=== PATIENT | male | born 1965 | race African-American/Black ===

== ENCOUNTER 2017-11-14 08:56 | Emergency (ER) | payer OTHER ==
[2017-11-14 09:02] VITALS: BP 156/97; PULSE 117; TEMP 101.5; BMI 41.5
[2017-11-14] MEDS ORDERED: ACETAMINOPHEN 325 MG TABLET (FP) PO ONE (09:04)
--- NOTE | 2017-11-14 09:09 | PDOC ---
History of Present Illness - History of Present Illness Initial Comments: 11/14/17 09:11 Mr. Schaeffer is a 52 yo male w/ pmh of HTN and previously admitted for leukopenia ( 12/19/2012) who presents complaining of a 4 day history of body aches, fevers, and chills. He had initially thought he had a cold but decided to come and get evaluated due to his prior leukopenia. He has been evaluated by hematology in the past and cause of prior leukopenia remains unknown. The patient denies chest pain, shortness of breath, headache and dizziness. Denies nausea, vomit, diarrhea and constipation. Denies dysuria, frequency, urgency and hematuria. Allergies: NKDA <Jimbo Lobato - Last Filed: 11/14/17 12:30> <Johny Patricia - Last Filed: 11/14/17 18:24> - General Chief Complaint: Respiratory Stated Complaint: FEVER Time Seen by Provider: 11/14/17 09:09 Past History - Past Medical History Anemia: No Asthma: No Cancer: No Cardiac Disorders: No CVA: No COPD: No CHF: No DVT: No Dementia: No Diabetes: No GI Disorders: No Disorders: No HTN: Yes Hypercholesterolemia: No Liver Disease: No Seizures: No Thyroid Disease: No - Surgical History Abdominal Surgery: No Appendectomy: No Cardiac Surgery: No Cholecystectomy: No Lung Surgery: No Neurologic Surgery: No Orthopedic Surgery: No - Suicide/Smoking/Psychosocial Hx Smoking Status: No Smoking History: Never smoked Number of Cigarettes Smoked Daily: 0 Information on smoking cessation initiated: No Hx Alcohol Use: No Drug/Substance Use Hx: No Substance Use Type: None <Jimbo Lobato - Last Filed: 11/14/17 12:30> <Johny Patricia - Last Filed: 11/14/17 18:24> - Past Medical History Allergies/Adverse Reactions: Allergies Allergy/AdvReac Type Severity Reaction Status Date / Time No Known Allergies Allergy Verified 11/14/17 08:57 Home Medications: Ambulatory Orders Benzonatate [Tessalon Perle] 100 mg PO TID PRN #30 capsule 07/13/13 Valsartan/Hydrochlorothiazide [Diovan Hct 160-25 mg Tablet] 1 combo PO DAILY Review of Systems - Review of Systems Comments:: 11/14/17 09:22 GENERAL/CONSTITUTIONAL: +Fever/chills and body aches as described. No weakness. HEAD, EYES, EARS, NOSE AND THROAT: No change in vision. No ear pain or discharge. No sore throat. CARDIOVASCULAR: No chest pain or shortness of breath RESPIRATORY: No cough, wheezing, or hemoptysis. GASTROINTESTINAL: No nausea, vomiting, diarrhea or constipation. GENITOURINARY: No dysuria, frequency, or change in urination. MUSCULOSKELETAL: No joint or muscle swelling or pain. No neck or back pain. SKIN: No rash NEUROLOGIC: No headache, vertigo, loss of consciousness, or change in strength/ sensation. ENDOCRINE: No increased thirst. No abnormal weight change HEMATOLOGIC/LYMPHATIC: No anemia, easy bleeding, or history of blood clots. ALLERGIC/IMMUNOLOGIC: No hives or skin allergy. <Jimbo Lobato - Last Filed: 11/14/17 12:30> *Physical Exam - Vital Signs Last Vital Signs Temp Pulse Resp BP Pulse Ox 101.5 F H 117 H 18 156/97 100 11/14/17 08:59 11/14/17 08:59 11/14/17 08:59 11/14/17 08:59 11/14/17 08:59 - Physical Exam Comments: 11/14/17 09:23 GENERAL: Awake, alert, and fully oriented, in no acute distress HEAD: No signs of trauma, normocephalic, atraumatic EYES: PERRLA, EOMI, sclera anicteric, conjunctiva clear ENT: Auricles normal inspection, hearing grossly normal, nares patent, oropharynx clear without exudates. Moist mucosa NECK: Normal ROM, supple, no lymphadenopathy, JVD, or masses LUNGS: No distress, speaks full sentences, clear to auscultation bilaterally HEART: Regular rate and rhythm, normal S1 and S2, no murmurs, rubs or gallops, peripheral pulses normal and equal bilaterally. ABDOMEN: Soft, nontender, normoactive bowel sounds. No guarding, no rebound. No masses EXTREMITIES: Normal inspection, Normal range of motion, no edema. No clubbing or cyanosis. NEUROLOGICAL: Cranial nerves II through XII grossly intact. Normal speech, normal gait, no focal sensorimotor deficits SKIN: Warm, Dry, normal turgor, no rashes or lesions noted. <Jimbo Lobato - Last Filed: 11/14/17 12:30> - Vital Signs Last Vital Signs Temp Pulse Resp BP Pulse Ox 101.5 F H 117 H 18 156/97 100 11/14/17 08:59 11/14/17 08:59 11/14/17 08:59 11/14/17 08:59 11/14/17 10:00 <Johny Patricia - Last Filed: 11/14/17 18:24> ED Treatment Course - LABORATORY CBC & Chemistry Diagram: 11/14/17 10:20 11/14/17 10:20 - Medications Given in the ED: ED Medications Discontinued Medications Generic Name Dose Route Start Last Admin Trade Name Freq PRN Reason Stop Dose Admin Acetaminophen 975 mg 11/14/17 09:04 11/14/17 09:05 Tylenol - PO 11/14/17 09:05 975 mg NOW ONE Administration <Jimbo Lobato - Last Filed: 11/14/17 12:30> - LABORATORY CBC & Chemistry Diagram: 11/14/17 10:20 11/14/17 10:20 - ADDITIONAL ORDERS Additional order review: Laboratory Results 11/14/17 11/14/17 11/14/17 10:50 10:20 10:20 WBC RBC Hgb Hct MCV MCH MCHC RDW Plt Count MPV Neutrophils % Lymphocytes % Monocytes % Eosinophils % Basophils % Nucleated RBC % PT with INR INR PTT (Actin FS) VBG pH 7.45 H POC VBG pCO2 42.1 POC VBG pO2 58.6 H Mixed VBG HCO3 28.6 H Sodium Potassium Chloride Carbon Dioxide Anion Gap BUN Creatinine Creat Clearance w eGFR Random Glucose Lactic Acid 1.2 Calcium Total Bilirubin AST ALT Alkaline Phosphatase Troponin I < 0.02 Total Protein Albumin Urine Color Urine Appearance Urine pH Ur Specific [place] Urine Protein Urine Glucose (UA) Urine Ketones Urine Blood Urine Nitrite Urine Bilirubin Urine Urobilinogen Ur Leukocyte Esterase 11/14/17 11/14/17 11/14/17 10:20 10:20 10:20 WBC RBC Hgb Hct MCV MCH MCHC RDW Plt Count MPV Neutrophils % Lymphocytes % Monocytes % Eosinophils % Basophils % Nucleated RBC % PT with INR 11.80 INR 1.04 PTT (Actin FS) 31.1 VBG pH POC VBG pCO2 POC VBG pO2 Mixed VBG HCO3 Sodium 138 Potassium 3.5 Chloride 101 Carbon Dioxide 30 Anion Gap 7 L BUN 15 Creatinine 1.4 H Creat Clearance w eGFR 53.64 Random Glucose 85 D Lactic Acid Calcium 8.9 Total Bilirubin 0.7 D AST 27 D ALT 43 D Alkaline Phosphatase 86 Troponin I Total Protein 7.6 Albumin 3.6 Urine Color Yellow Urine Appearance Clear Urine pH 7.0 D Ur Specific [place] 1.016 Urine Protein Negative Urine Glucose (UA) Negative Urine Ketones Negative Urine Blood Negative Urine Nitrite Negative Urine Bilirubin Negative Urine Urobilinogen 2.0 Ur Leukocyte Esterase Negative 11/14/17 10:20 WBC 7.8 D RBC 4.52 Hgb 13.3 D Hct 38.8 MCV 85.9 MCH 29.4 MCHC 34.3 RDW 13.3 Plt Count 153 MPV 10.1 Neutrophils % 82.6 D Lymphocytes % 8.2 D Monocytes % 7.7 Eosinophils % 1.1 Basophils % 0.4 Nucleated RBC % 0 PT with INR INR PTT (Actin FS) VBG pH POC VBG pCO2 POC VBG pO2 Mixed VBG HCO3 Sodium Potassium Chloride Carbon Dioxide Anion Gap BUN Creatinine Creat Clearance w eGFR Random Glucose Lactic Acid Calcium Total Bilirubin AST ALT Alkaline Phosphatase Troponin I Total Protein Albumin Urine Color Urine Appearance Urine pH Ur Specific [place] Urine Protein Urine Glucose (UA) Urine Ketones Urine Blood Urine Nitrite Urine Bilirubin Urine Urobilinogen Ur Leukocyte Esterase 11/14/17 09:43 Influenza Types A,B Antigen - Final Nasopharyngeal Swab - Final 11/14/17 10:20 RBC 4.52 MCV 85.9 MCHC 34.3 RDW 13.3 MPV 10.1 Neutrophils % 82.6 D Lymphocytes % 8.2 D Monocytes % 7.7 Eosinophils % 1.1 Basophils % 0.4 - Medications Given in the ED: ED Medications Discontinued Medications Generic Name Dose Route Start Last Admin Trade Name Freq PRN Reason Stop Dose Admin Acetaminophen 975 mg 11/14/17 09:04 11/14/17 09:05 Tylenol - PO 11/14/17 09:05 975 mg NOW ONE Administration Sodium Chloride 1,000 mls @ 1,000 mls/hr 11/14/17 10:57 11/14/17 11:30 Normal Saline - IV 11/14/17 11:56 1,000 mls/hr ASDIR STA Administration <Johny Patricia - Last Filed: 11/14/17 18:24> Medical Decision Making - Medical Decision Making 11/14/17 11:04 Mr. Schaeffer is a 52 yo male w/ pmh as described who presents with fever/chills as described with body aches. Given history of leukopenia, sepsis protocol started as patient noted to have fever of 101.5 and pulse of 117. 11/14/17 11:05 Labs grossly unconcerning as below. Repeat temperature 97.9. 1 L NS given for symptomatic treatment. Influenza swab negative. 11/14/17 12:31 Discussed patient with PCP who will follow-up outpatient. Repeat vitals stable w / bp 131/81, pulse 93, O2 97 on room air. Discharging to home. Laboratory Results - last 24 hr 11/14/17 11/14/17 11/14/17 10:20 10:20 10:20 WBC 7.8 D RBC 4.52 Hgb 13.3 D Hct 38.8 MCV 85.9 MCH 29.4 MCHC 34.3 RDW 13.3 Plt Count 153 MPV 10.1 Neutrophils % 82.6 D Lymphocytes % 8.2 D Monocytes % 7.7 Eosinophils % 1.1 Basophils % 0.4 Nucleated RBC % 0 PT with INR 11.80 INR 1.04 PTT (Actin FS) 31.1 VBG pH POC VBG pCO2 POC VBG pO2 Mixed VBG HCO3 Sodium 138 Potassium 3.5 Chloride 101 Carbon Dioxide 30 Anion Gap 7 L BUN 15 Creatinine 1.4 H Creat Clearance w eGFR 53.64 Random Glucose 85 D Lactic Acid Calcium 8.9 Total Bilirubin 0.7 D AST 27 D ALT 43 D Alkaline Phosphatase 86 Troponin I Total Protein 7.6 Albumin 3.6 Urine Color Urine Appearance Urine pH Ur Specific [place] Urine Protein Urine Glucose (UA) Urine Ketones Urine Blood Urine Nitrite Urine Bilirubin Urine Urobilinogen Ur Leukocyte Esterase 11/14/17 11/14/17 11/14/17 10:20 10:20 10:20 WBC RBC Hgb Hct MCV MCH MCHC RDW Plt Count MPV Neutrophils % Lymphocytes % Monocytes % Eosinophils % Basophils % Nucleated RBC % PT with INR INR PTT (Actin FS) VBG pH POC VBG pCO2 POC VBG pO2 Mixed VBG HCO3 Sodium Potassium Chloride Carbon Dioxide Anion Gap BUN Creatinine Creat Clearance w eGFR Random Glucose Lactic Acid 1.2 Calcium Total Bilirubin AST ALT Alkaline Phosphatase Troponin I < 0.02 Total Protein Albumin Urine Color Yellow Urine Appearance Clear Urine pH 7.0 D Ur Specific [place] 1.016 Urine Protein Negative Urine Glucose (UA) Negative Urine Ketones Negative Urine Blood Negative Urine Nitrite Negative Urine Bilirubin Negative Urine Urobilinogen 2.0 Ur Leukocyte Esterase Negative 11/14/17 10:50 WBC RBC Hgb Hct MCV MCH MCHC RDW Plt Count MPV Neutrophils % Lymphocytes % Monocytes % Eosinophils % Basophils % Nucleated RBC % PT with INR INR PTT (Actin FS) VBG pH 7.45 H POC VBG pCO2 42.1 POC VBG pO2 58.6 H Mixed VBG HCO3 28.6 H Sodium Potassium Chloride Carbon Dioxide Anion Gap BUN Creatinine Creat Clearance w eGFR Random Glucose Lactic Acid Calcium Total Bilirubin AST ALT Alkaline Phosphatase Troponin I Total Protein Albumin Urine Color Urine Appearance Urine pH Ur Specific [place] Urine Protein Urine Glucose (UA) Urine Ketones Urine Blood Urine Nitrite Urine Bilirubin Urine Urobilinogen Ur Leukocyte Esterase <Jimbo Lobato - Last Filed: 11/14/17 12:30> *DC/Admit/Observation/Transfer <Jimbo Lobato - Last Filed: 11/14/17 12:30> <Johny Patricia - Last Filed: 11/14/17 18:24> Diagnosis at time of Disposition: Fever and chills - Discharge Dispostion Disposition: HOME Condition at time of disposition: Good - Referrals Referrals: Brandon Ewing [Primary Care Provider] - - Patient Instructions Additional Instructions: Alternate Tylenol and Motrin every 3 hours as needed for fever as directed on package. Drink plenty of fluids. Rest. Follow-up with your doctor on Thursday. Return to the emergency department immediately for any severe worsening symptoms or for any concerns.
--- NOTE | 2017-11-14 09:34 | PDOC ---
Attending Attestation - HPI HPI: 11/14/17 09:43 The patient is a 52 year old male with a significant PMH of Leukopenia (2012) and HTN who presents to the emergency department with fevers, chills, and body aches beginning approximately 3 days ago. The patient states he was told by his defect repairer glassware when he was diagnosed with Leukopenia that he is at an increased risk of infection secondary to his low leukocytes. The patient denies nasal congestion or cough. He denies nausea, vomiting, or diarrhea. He denies dysuria , frequency, urgency, or hematuria. He denies chest pain or shortness of breath. Allergies: NKA PCP: Dr. Ewing - Physicial Exam PE: 11/14/17 09:43 Vitals: Triage Vital signs reviewed General Appearance: no acute distress, well nourished well developed, Ears: TM's normal bilaterally; Nose: Nares patent bilaterally;no nasal congestion Throat: Posterior oropharynx without erythema, mucous membranes moist, Cardiac: Regular rate and rhythm, no murmurs, no rubs, no gallops, Lungs: Clear to auscultation bilateral, good air movement bilaterally, Abdomen: Soft, nondistended, normal bowel sounds, nontender to palpation Extremities: Full range of motion to all extremities, no cyanosis, clubbing, or edema Skin: Warm and dry, no rashes or lesions, no petechiae Neuro: AOX3; Cranial Nerves 2-12 grossly intact, Strength intact to all extremities, Sensation intact to all extremities Psych: normal mood, normal affect - Medical Decision Making 11/14/17 11:29 The patient is a 52 year old male with a significant PMH of Leukopenia (2012) and HTN who presents to the emergency department with fevers, chills, and body aches beginning approximately 3-4 days ago. The patient states he was told by his defect repairer glassware when he was diagnosed with Leukopenia that he is at an increased risk of infection secondary to his low leukocytes. The patient denies nasal congestion or cough. He denies nausea, vomiting, or diarrhea. He denies dysuria, frequency, urgency, or hematuria. He denies chest pain or shortness of breath. Allergies: NKA PCP: Dr. Ewing <Bao Briones - Last Filed: 11/14/17 11:56> - Resident Resident Name: KikejovanaJimbo velasco - ED Attending Attestation I have performed the following: I have examined & evaluated the patient, The case was reviewed & discussed with the resident, I agree w/resident's findings & plan, Exceptions are as noted - Medical Decision Making Fever of unknown origin. Blood blood cultures flu chest x-ray urine ordered Reevaluation workup within normal limits. Patient feels much better after fever reduction and IV fluids. Case discussed with patient's primary care provider No obvious source for infection at this time Patient with WBC 7.8. No shift. At this time no indication for antibiotics Patient will follow up with his primary care provider on Thursday. He'll return to the emergency department for any severe worsening symptoms or for any concerns. 11/14/17 12:21 <Johny Patricia - Last Filed: 11/14/17 12:22> Heart Score/ECG Review - ECG Impressions Comment:: 11/14/17 12:22 EKG performed at 947. Demonstrates sinus tachycardia 103. No ST elevations or T- wave inversions. Interpreted by me. <Johny Patricia - Last Filed: 11/14/17 12:22>
[2017-11-14 10:35] LABS: BASO % 0.4 % (0-2.0); EOS % 1.1 % (0-4.5); HEMATOCRIT 38.8 % (35.4-49); HEMOGLOBIN 13.3 GM/dL (11.7-16.9); LYMPH % 8.2 % (8-40); MCH 29.4 pg (25.7-33.7); MCHC 34.3 g/dl (32.0-35.9); MEAN CELL VOLUME 85.9 fl (80-96); MEAN PLT VOLUME 10.1 fl (7.5-11.1); MONO % 7.7 % (3.8-10.2); NEUT % 82.6 % (42.8-82.8); PLATELET COUNT 153 K/MM3 (134-434); RBC 4.52 M/mm3 (4.00-5.60); RDW 13.3 % (11.9-15.9); WHITE BLOOD COUNT 7.8 K/mm3 (4.0-10.0)
[2017-11-14 10:39] LABS: URINE APPEARANCE CLEAR; URINE BILIRUBIN NEGATIVE (<2.0 mg/dL); URINE COLOR YELLOW; URINE GLUCOSE (UA) NEGATIVE (NEGATIVE); URINE KETONE NEGATIVE (NEGATIVE); URINE LEUK ESTERASE NEGATIVE (NEGATIVE); URINE NITRITE NEGATIVE (NEGATIVE); URINE PROTEIN NEGATIVE (NEGATIVE)
[2017-11-14 10:50] LABS: INR 1.04 (0.82-1.09); PROTHROMBIN TIME (PATIENT) 11.8 SEC (9.7-13.0)
[2017-11-14 10:53] LABS: ACTIVATED PTT 31.1 SECONDS (26.9-34.4)
[2017-11-14] MEDS ORDERED: SODIUM CHLORIDE 1,000 ML IV STA (10:57)
[2017-11-14 11:00] LABS: ALBUMIN 3.6 g/dl (3.4-5.0); ANION GAP 7 (8-16); BLOOD UREA NITROGEN 15 mg/dL (7-18); CALCIUM 8.9 mg/dL (8.5-10.1); CHLORIDE 101 mmol/L (98-107); CO2 30 mmol/L (21-32); CREATININE 1.4 mg/dL (0.7-1.3); GLUCOSE,RANDOM 85 mg/dL (74-106); POTASSIUM 3.5 mmol/L (3.5-5.1); SGOT/AST 27 U/L (15-37); SGPT/ALT 43 U/L (12-78); SODIUM 138 mmol/L (136-145)
[2017-11-14 11:02] LABS: ALK PHOS 86 U/L (45-117); BILIRUBIN,TOTAL 0.7 mg/dL (0.2-1.0); TOT PROT 7.6 g/dl (6.4-8.2)
[2017-11-14 11:03] LABS: VENOUS PC02 42.1 mmHg (38-52); VENOUS PH 7.45 (7.32-7.42); VENOUS PO2 58.6 mmHg (28-48)
--- NOTE | 2017-11-14 17:34 | EKG ---
Test Reason : Blood Pressure : / mmHG Vent. Rate : 103 BPM Atrial Rate : 103 BPM P-R Int : 150 ms QRS Dur : 090 ms QT Int : 334 ms P-R-T Axes : 039 -02 003 degrees QTc Int : 437 ms SINUS TACHYCARDIA POSSIBLE LEFT ATRIAL ENLARGEMENT POSSIBLE INFERIOR INFARCT , AGE UNDETERMINED ABNORMAL ECG WHEN COMPARED WITH ECG OF 17-DEC-2012 11:20, NO SIGNIFICANT CHANGE WAS FOUND Confirmed by TYREE CAGE, MK ([id number]) on 11/14/2017 5:33:32 PM Referred By: Confirmed By:MK CLEMENTS MD
== END 2017-11-14 12:39 | disposition home or self-care (01) ==
LOC: JER 08:56
PROC: 3E0337Z Introduction of Electrolytic and Water Balance Substance into Peripheral Vein, Percutaneous Approach (ICD-10-PCS; principal; 2017-11-14)
DX: R50.9 Fever, unspecified (principal); D72.819 Decreased white blood cell count, unspecified
CPT/HCPCS: 36415; 71045-TC-FY; 80053; 81003; 82803; 83605; 84484; 85025; 85610; 85730; 87040; 87086; 87804; 93005; 93010; 99284-25; J7030

== ENCOUNTER 2018-04-16 08:36 | Emergency (ER) | payer OTHER ==
[2018-04-16 08:43] VITALS: PULSE 80; BMI 43.0
--- NOTE | 2018-04-16 08:46 | PDOC ---
History of Present Illness - General Chief Complaint: Blood Pressure Problem Stated Complaint: BLOOD PRESSURE PROBLEM Time Seen by Provider: 04/16/18 08:45 History Source: Patient Exam Limitations: No Limitations - History of Present Illness Initial Comments: Pt is a 52 yo M, with PMH of HTN, HLD, leukopenia, and TATIANNA, who is presenting with asymptomatic HTN. Pt states his baseline BP is around 220s/100s. The pt was seen in the sleep clinic yesterday for follow-up of his sleep apnea, where they found his BP to be 200s/140s. Pt repeated his BP this AM with similar results, so came to the ER because he thought his PCP "would send me to the ER anyway". Pt complains of no symptoms, including no headache, syncope, vision changes, chest pain, nausea/vomiting, urinary symptoms, or leg swelling. 04/17/18 10:40 Past History - Travel Traveled outside of the country in the last 30 days: No Close contact w/someone who was outside of country & ill: No - Past Medical History Allergies/Adverse Reactions: Allergies Allergy/AdvReac Type Severity Reaction Status Date / Time No Known Allergies Allergy Verified 11/14/17 08:57 Home Medications: Ambulatory Orders Aspirin [ASA -] 81 mg PO DAILY 04/16/18 Valsartan/Hydrochlorothiazide [Valsartan-Hctz 320-12.5 mg Tab] 1 each PO DAILY 04/16/18 Anemia: No Asthma: No Cancer: No Cardiac Disorders: No CVA: No COPD: No CHF: No DVT: No Dementia: No Diabetes: No GI Disorders: No Disorders: No HTN: Yes Hypercholesterolemia: Yes Liver Disease: No Seizures: No Thyroid Disease: No Other medical history: TATIANNA - Surgical History Abdominal Surgery: No Appendectomy: No Cardiac Surgery: No Cholecystectomy: No Lung Surgery: No Neurologic Surgery: No Orthopedic Surgery: No - Suicide/Smoking/Psychosocial Hx Smoking Status: No Smoking History: Never smoked Number of Cigarettes Smoked Daily: 0 Hx Alcohol Use: No Drug/Substance Use Hx: No Substance Use Type: None Review of Systems - Review of Systems Able to Perform ROS?: Yes Is the patient limited Cambodian proficient: No Constitutional: Yes: Weight Stable. No: Chills, Diaphoresis, Fever, Loss of Appetite, Weakness HEENTM: No: Eye Pain, Blurred Vision, Recent change in vision, Double Vision, Hearing Loss, Difficulty Swallowing Respiratory: No: Cough, Orthopnea, Shortness of Breath Cardiac (ROS): No: Chest Pain, Edema, Irregular Heart Rate, Lightheadedness, Palpitations, Syncope, Chest Tightness ABD/GI: No: Abdominal Distended, Constipated, Diarrhea, Nausea, Poor Appetite, Poor Fluid Intake, Vomiting, Indigestion : No: Burning, Dysuria, Frequency, Hematuria, Pain, Urgency Musculoskeletal: No: Back Pain, Joint Pain, Muscle Weakness Integumentary: No: Bruising, Rash Neurological: No: Headache, Numbness, Paresthesia, Seizure, Weakness, Unsteady Gait, Ataxia, Dizziness Psychiatric: No: Sleep Pattern Change, Change in Appetite Endocrine: No: Increased Urine, Change in Weight Hematologic/Lymphatic: No: Anemia, Blood Clots, Easy Bleeding, Easy Bruising All Other Systems: Reviewed and Negative *Physical Exam - Vital Signs Last Vital Signs Temp Pulse Resp BP Pulse Ox 97.8 F 80 16 240/140 H 04/16/18 08:39 04/16/18 08:39 04/16/18 08:39 04/16/18 08:39 - Physical Exam General Appearance: Yes: Nourished, Appropriately Dressed, Obese. No: Apparent Distress (lying comfortably, pt stable, answering questions appropriately.) HEENT: positive: EOMI, RUBY, Normal ENT Inspection, Normal Voice, Symmetrical, Pharynx Normal, Hearing Grossly Normal. negative: Scleral Icterus (R), Scleral Icterus (L), Pharyngeal Erythema, Tonsillar Exudate, Tonsillar Erythema, Rhinorrhea Neck: positive: Trachea midline, Normal Thyroid, Supple. negative: Tender, Rigid, Lymphadenopathy (R), Lymphadenopathy (L) Respiratory/Chest: positive: Lungs Clear, Normal Breath Sounds. negative: Chest Tender, Respiratory Distress, Accessory Muscle Use, Crackles, Wheezing Cardiovascular: positive: Regular Rhythm, Regular Rate. negative: Edema, JVD, Murmur Vascular Pulses: Carotid (R): 4+, Carotid (L): 4+ Gastrointestinal/Abdominal: positive: Normal Bowel Sounds, Flat, Soft. negative : Tender, Organomegaly, Pulsatile Mass, Distended, Guarding, Rebound Rectal Exam: positive: deferred Lymphatic: negative: Adenopathy, Tenderness Musculoskeletal: positive: Normal Inspection. negative: CVA Tenderness Extremity: positive: Normal Capillary Refill, Normal Inspection, Normal Range of Motion, Pelvis Stable. negative: Tender, Pedal Edema, Calf Tenderness Integumentary: positive: Normal Color, Dry, Warm. negative: Jaundice, Diaphoresis, Ecchymosis Neurologic: positive: evidence custodian II-XII NML intact, Fully Oriented, Alert, Normal Mood/ Affect, Normal Response, Motor Strength 5/5. negative: EOM Palsy, Facial Droop Deep Tendon Reflexes: Knee (L): 3+, Knee (R): 3+, Bicep (L): 3+, Bicep (R): 3+ ED Treatment Course - LABORATORY CBC & Chemistry Diagram: 04/16/18 09:00 04/16/18 09:00 Medical Decision Making - Medical Decision Making (entered later) Pt seen at bedside, also seen by Dr. Patricia. Pt presenting with asymptomatic HTN (240/140). Pt baseline around 220s/100s. Pt complains of no symptoms, including no headache, syncope, vision changes, chest pain, nausea/ vomiting, urinary symptoms. Pt was seen in the sleep clinic yesterday for follow -up of his sleep apnea, where they found his BP to be 200s/140s. Pt repeated his BP this AM with similar results, so came to the ER because he thought his PCP "would send me to the ER anyway". PE exam benign. Visual acuity intact, A/O x4, cardiac and pulm exam WNL. Ordered CBC, CMP, ECG, and UA to r/o any electrolyte imbalances/renal function, monitor WBC (pt has hx of leukopenia), and any ketones/protein released in urine to r/o kidney ds. CBC WNL. CMP showed K 3.3, BUN/Cr (18/1.5; Cr 1.4 on last visit), normal UA. ECG showed NSR with left axis deviation, large QRS voltages in anterio-lateral leads. Pt repeat BP 168/112, with no interventions. Called Dr. Ewing's office to schedule urgent outpatient appointment for better BP control. Spoke with JENNIFER at the office and left a message for Dr. Ewing; their office will take him as a walk-in pt today. Clonidine patch (.3 mg transdermal) applied until pt can see his PCP. Pt discharged to home with immediate PCP follow-up. Strict return precautions provided with pt understanding. 04/16/18 09:59 04/17/18 10:31 *DC/Admit/Observation/Transfer Diagnosis at time of Disposition: Hypertension Qualifiers: Hypertension type: unspecified Qualified Code(s): I10 - Essential (primary) hypertension - Discharge Dispostion Disposition: HOME Condition at time of disposition: Improved Decision to Admit order: No - Referrals Referrals: Brandon Ewing [Primary Care Provider] - - Patient Instructions Printed Discharge Instructions: DI for High Blood Pressure Additional Instructions: You were seen in the ER today for high blood pressure. Your pressure improved while you were in the ER with us. We also provided a clonidine patch, which will stay on for 7 days so that you can see your primary care doctor. Please go to your PCP office once you leave the ER, as they will see you as a walk-in patient today. Please return to the ER if you have any loss of consciousness, severe headache, vision changes, chest pain, or any other concerns. BP on presentation: 240/140 BP 9:30: 168/112 - Post Discharge Activity
[2018-04-16 09:29] LABS: BASO % 0.8 % (0-2.0); EOS % 2.4 % (0-4.5); HEMATOCRIT 41.8 % (35.4-49); HEMOGLOBIN 14.2 GM/dL (11.7-16.9); LYMPH % 29.2 % (8-40); MCH 28.7 pg (25.7-33.7); MEAN CELL VOLUME 84.3 fl (80-96); MEAN PLT VOLUME 10.4 fl (7.5-11.1); MONO % 8.5 % (3.8-10.2); NEUT % 59.1 % (42.8-82.8); PLATELET COUNT 163 K/MM3 (134-434); RBC 4.96 M/mm3 (4.00-5.60); RDW 14.1 % (11.9-15.9); WHITE BLOOD COUNT 3.9 K/mm3 (4.0-10.0)
--- NOTE | 2018-04-16 09:29 | EKG ---
Test Reason : Blood Pressure : / mmHG Vent. Rate : 083 BPM Atrial Rate : 083 BPM P-R Int : 156 ms QRS Dur : 098 ms QT Int : 384 ms P-R-T Axes : 035 -14 015 degrees QTc Int : 451 ms NORMAL SINUS RHYTHM POSSIBLE LEFT ATRIAL ENLARGEMENT POSSIBLE ANTERIOR INFARCT , AGE UNDETERMINED ABNORMAL ECG WHEN COMPARED WITH ECG OF 14-NOV-2017 09:47, NO SIGNIFICANT CHANGE WAS FOUND Confirmed by VU VALERA MD ([id number]) on 04/16/2018 9:28:38 AM Referred By: Confirmed By:VU VALERA MD
[2018-04-16 09:34] LABS: URINE APPEARANCE CLEAR; URINE BILIRUBIN NEGATIVE (<2.0 mg/dL); URINE COLOR LTYELLOW; URINE GLUCOSE (UA) NEGATIVE (NEGATIVE); URINE KETONE NEGATIVE (NEGATIVE); URINE LEUK ESTERASE NEGATIVE (NEGATIVE); URINE NITRITE NEGATIVE (NEGATIVE); URINE PROTEIN NEGATIVE (NEGATIVE); URINE UROBILINOGEN NEGATIVE mg/dL (0.2-1.0)
[2018-04-16 09:46] VITALS: BP 168/112
[2018-04-16] MEDS ORDERED: cloNIDine-TTS 0.3 MG /24 HRS PATCH.TDWK TD ONE (09:51)
[2018-04-16 09:54] LABS: ALBUMIN 3.6 g/dl (3.4-5.0); ALK PHOS 83 U/L (45-117); ANION GAP 5 MMOL/L (8-16); BILIRUBIN,TOTAL 0.5 mg/dL (0.2-1); BLOOD UREA NITROGEN 18 mg/dL (7-18); CALCIUM 9.1 mg/dL (8.5-10.1); CHLORIDE 101 mmol/L (98-107); CO2 35 mmol/L (21-32); CREATININE 1.5 mg/dL (0.55-1.3); GLUCOSE,RANDOM 95 mg/dL (74-106); POTASSIUM 3.3 mmol/L (3.5-5.1); SGOT/AST 27 U/L (15-37); SGPT/ALT 34 U/L (13-61); SODIUM 141 mmol/L (136-145); TOT PROT 7.7 g/dl (6.4-8.2)
--- NOTE | 2018-04-16 09:59 | PDOC ---
Attending Attestation - HPI HPI: 04/16/18 11:17 CC: Elevated blood pressure HPI: The patient is a 52 year old male, with a significant past medical history of Leukopenia (2013) and HTN, who presents to the emergency department with, elevated blood pressure. As per patient, he was at his sleep apnea clinic yesterday when his blood pressure was checked and found to be elevated to 200s/ 100s. Patient was prompted to report to the ED but, did not report until today for unclear circumstances. While in the ED, the patient endorses being asymptomatic. He denies any recent fevers, chills, headache or dizziness. He denies any recent nausea, vomit, diarrhea or constipation. He denies any recent chest pain or shortness of breath. He denies any recent dysuria, frequency, urgency or hematuria. Allergies: NKDA Past surgical history: None reported. Primary Care Physician: Dr. Ewing - Physicial Exam PE: 04/16/18 11:29 Exam: Vitals: Triage Vital signs reviewed General Appearance: no acute distress, well nourished well developed, Head: Atraumatic, normocephalic Nose: No nasal congestion Throat: Mucous membranes moist, Neck: Supple;No Nuchal rigidity Chest Wall: Nontender Cardiac: Regular rate and rhythm, no murmurs, no rubs, no gallops, Lungs: Clear to auscultation bilateral, good air movement bilaterally, Abdomen: Soft, nondistended, normal bowel sounds, nontender to palpation Rectal: Exam deferred Extremities: Full range of motion to all extremities, no cyanosis, clubbing, or edema Skin: Warm and dry, no rashes or lesions, no petechiae Neuro: AOX3; Cranial Nerves 2-12 grossly intact, Strength intact to all extremities, Sensation intact to all extremities Psych: normal mood, normal affect - Medical Decision Making 04/16/18 11:17 52 year old male with history of HTN presents to the ED with, elevated blood pressure. Plan is to: Clonidine patch Reasses Follow up with PCP <Snehal Hamilton - Last Filed: 04/16/18 11:33> - Resident Resident Name: Cristiane Johnson - ED Attending Attestation I have performed the following: I have examined & evaluated the patient, The case was reviewed & discussed with the resident, I agree w/resident's findings & plan, Exceptions are as noted - Medical Decision Making Blood pressure on presentation to 240/140 asymptomatic. Status post clonidine patch 168/112 patient remains asymptomatic This is a reasonable decrease in a short period of time we have contacted the patient's primary care provider and provided him with a copy of his labs and EKG. Patient will go directly from the emergency department his primary care provider's office for further blood pressure management and long-term management. Findings, need for follow-up and strict return instructions discussed with patient. <Johny Patricia - Last Filed: 04/16/18 15:17> Attestations - Attestations 04/16/18 11:19 Documentation prepared by Snehal Hamilton, acting as medical laboratory technologist for Johny Patricia MD. <Snehal Hamilton - Last Filed: 04/16/18 11:33>
[2018-04-16 10:33] VITALS: TEMP 98
== END 2018-04-16 10:25 | disposition home or self-care (01) ==
LOC: SUPCPDRO 08:36 → JER 08:36
DX: I10 Essential (primary) hypertension (principal); E78.00 Pure hypercholesterolemia, unspecified
CPT/HCPCS: 36415; 80053; 81003; 85025; 93005; 93010; 99284-25